=== PATIENT | female | born 1970 | race Hispanic/Latino ===

== ENCOUNTER 2019-03-02 11:10 | Emergency (ER) | payer SELFPAY ==
--- OUTSIDE RECORDS SUMMARY | 2019-03-02 11:13 | XMS REPORT ---
:1970 Author Organization [facility] Address [address] [place] [address] [address]. [address] [place] [address] Care Team Providers Name Role Phone Unavailable Unavailable Unavailable Payers Payer Name Policy Type Policy Number Effective Date Expiration Date Problems This patient has no known problems. Allergies, Adverse Reactions, Alerts Allergy Name Allergy Status Severity Reaction(s) Onset Inactive Treating Comments Type Date Date Clinician No Known DA Active U 2007-11 Contrast 2- Allergies 00:00: 00 No Known Food DA Active U 2007-11 Allergies 2- 00:00: 00 No Known Other DA Active U 2007-11 Allergies 2- 00:00: 00 PENICILLIN DA Active U 2007-11 2- 00:00: 00 No Known Drug DA Active U 2006-11 Intolerances 2- 00:00: 00 Medications This patient has no known medications.
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
== END 2019-03-02 13:38 | disposition home or self-care (01) ==
LOC: ER 11:10
DX: S20.229A Contusion of unspecified back wall of thorax, initial encounter (principal); S33.5XXA Sprain of ligaments of lumbar spine, initial encounter; V49.40XA Driver injured in collision with unspecified motor vehicles in traffic accident, initial encounter; E03.9 Hypothyroidism, unspecified; E11.9 Type 2 diabetes mellitus without complications; E78.00 Pure hypercholesterolemia, unspecified; Z88.6 Allergy status to analgesic agent; Z88.0 Allergy status to penicillin
CPT/HCPCS: 71250; 72125; 74176; 99284